=== PATIENT | male | born 1960 | race Caucasian/White ===

== ENCOUNTER 2018-11-09 18:58 | Inpatient (IN) | payer BC ==
[~2018-11-09] VITALS: Ht 175.3 cm; Wt 83.9 kg
[2018-11-09 19:18] VITALS: BP_SYST 158
[2018-11-09] MEDS ORDERED: NACL 0.9% 1,000 ML IV ONE (20:00)
[2018-11-09 20:15] LABS: BASOPHILS % (AUTO) 0.1 % (0.0-2.0); EOSINOPHILS % (AUTO) 0.8 % (0.0-4.0); HEMATOCRIT 38.4 % (36-54); HEMOGLOBIN 12.3 g/dL (14.0-18.0); LYMPHOCYTES # (AUTO) 1.9 K/uL (1.0-5.5); LYMPHOCYTES % (AUTO) 40.9 % (20.5-51.5); MEAN CORPUSCULAR HEMOGLOBIN 27 pg (27-31); MEAN CORPUSCULAR HGB CONC 32 % (32-36); MEAN CORPUSCULAR VOLUME 86 fL (79.0-98.0); MONOCYTES # (AUTO) 0.5 K/uL (0.0-1.0); MONOCYTES % (AUTO) 10.1 % (1.7-9.3); NEUTROPHILS # (AUTO) 2.2 K/uL (1.8-7.7); NEUTROPHILS % (AUTO) 48.1 % (40.0-70.0); PLATELET COUNT (AUTO) 264 K/uL (130-430); RED BLOOD CELL COUNT(AUTO) 4.47 MIL/uL (4.2-6.2); RED CELL DISTRIBUTION WIDTH 15.6 % (9.0-15.0); WHITE BLOOD COUNT (AUTO) 4.6 K/uL (4.8-10.8)
[2018-11-09 20:27] LABS: ANION GAP 6 (5-15); CALCIUM 8.6 mg/dL (8.4-11.0); CHLORIDE 103 mmol/L (98-107); GLUCOSE 106 mg/dL (70-99); POTASSIUM 3.6 mmol/L (3.5-5.1); SODIUM SERUM 137 mmol/L (136-145); UREA NITROGEN, BLOOD 18 mg/dL (8-21)
[2018-11-09 20:28] LABS: GFR AFRICAN AMERICAN 111 mL/min (>90)
[2018-11-09 20:32] LABS: ALANINE AMINOTRANSFERASE 27 U/L (12-78); ALBUMIN 3.5 g/dL (3.4-4.8); ASPARTATE AMINOTRANSFERASE 16 U/L (10-37); TOTAL BILIRUBIN 0.2 mg/dL (0.0-1.0)
[2018-11-09 20:34] LABS: ALCOHOL, BLOOD < 3 mg/dL (<10)
[2018-11-09 20:36] LABS: PROTHROMBIN TIME 9.9 SECS (9.5-12.5)
[2018-11-09 21:25] LABS: BILIRUBIN,URINE NEGATIVE (NEGATIVE); BLOOD, URINE NEGATIVE (NEGATIVE); CLARITY/URINE CLEAR (CLEAR); COLOR,URINE YELLOW (YELLOW); GLUCOSE,URINE NEGATIVE (NEGATIVE); KETONES,URINE NEGATIVE (NEGATIVE); LEUKOCYTE ESTERASE ,URINE NEGATIVE (NEGATIVE); NITRITE, URINE NEGATIVE (NEGATIVE); PH,URINE 6.5 (5.0-8.0); PROTEIN URINE NEGATIVE (NEGATIVE); UROBILINOGEN,URINE 0.2 (0.2-1.0)
[2018-11-09 21:40] LABS: BARBITURATE, URINE NEGATIVE (NEG <=200); BENZODIAZEPINE, URINE NEGATIVE (NEG <=150); CANNABINOID, URINE NEGATIVE (NEG <=50); COCAINE, URINE NEGATIVE (NEG <=150); METHAMPHETAMINES SCREEN,URINE NEGATIVE (NEG <=500); OPIATE, URINE NEGATIVE (NEG <=100); PHENCYCLIDINE SCREEN,URINE NEGATIVE (NEG <=25); UR TRICYCLIC ANTIDEPRESSANTS NEGATIVE (NEG <=300); URINE AMPHETAMINE NEGATIVE (NEG <=500); URINE METHADONE NEGATIVE (NEG <=200); URINE OXYCODONE SCREEN NEGATIVE (NEG <=100); URINE PROPOXYPHENE SCREEN NEGATIVE (NEG <=300)
[2018-11-09] MEDS ORDERED: OMEG-143 PO (22:07)
[2018-11-09] MEDS ORDERED: LOSA1TAB43 PO (22:07)
[2018-11-09] MEDS ORDERED: DIPH25CA83 PO (22:07)
[2018-11-09] MEDS ORDERED: VIT D PO (22:07)
[2018-11-09] MEDS ORDERED: ACETAMINOPHEN 325 MG TABLET PO PRN (22:15)
[2018-11-09] MEDS ORDERED: ASPIRIN 81 MG TAB.CHEW PO SCH (22:30)
[2018-11-09 22:38] VITALS: BP_SYST 133
[2018-11-10] VITALS: BP_SYST 129
[2018-11-10 05:07] LABS: BASOPHILS % (AUTO) 0.1 % (0.0-2.0); EOSINOPHILS # (AUTO) 0.1 K/uL (0.0-0.4); EOSINOPHILS % (AUTO) 1.7 % (0.0-4.0); HEMATOCRIT 37.5 % (36-54); LYMPHOCYTES # (AUTO) 2.1 K/uL (1.0-5.5); LYMPHOCYTES % (AUTO) 52.9 % (20.5-51.5); MEAN CORPUSCULAR HEMOGLOBIN 27 pg (27-31); MEAN CORPUSCULAR HGB CONC 32 % (32-36); MEAN CORPUSCULAR VOLUME 86 fL (79.0-98.0); MONOCYTES # (AUTO) 0.4 K/uL (0.0-1.0); MONOCYTES % (AUTO) 9.5 % (1.7-9.3); NEUTROPHILS # (AUTO) 1.4 K/uL (1.8-7.7); NEUTROPHILS % (AUTO) 35.8 % (40.0-70.0); PLATELET COUNT (AUTO) 260 K/uL (130-430); RED BLOOD CELL COUNT(AUTO) 4.39 MIL/uL (4.2-6.2); RED CELL DISTRIBUTION WIDTH 15.4 % (9.0-15.0)
[2018-11-10 05:22] LABS: CALCIUM 8.2 mg/dL (8.4-11.0); CREATININE 0.68 mg/dL (0.55-1.30); POTASSIUM 3.8 mmol/L (3.5-5.1)
[2018-11-10 05:40] LABS: THYROID STIMULATING HORMONE 2.15 uIu/mL (0.36-3.74)
[2018-11-10 07:54] VITALS: BP_SYST 128
[2018-11-10] MEDS: ASPIRIN 81 MG TABLET(ECOTRIN) PO SCH (09:16)
[2018-11-10] MEDS: FAMOTIDINE 20 MG TABLET PO SCH (09:16)
[2018-11-10 10:53] LABS: CHOLESTEROL 143 mg/dL (<200); HDL CHOLESTEROL 42 mg/dL (>45); LDL CHOLESTEROL 85 mg/dL (<100); TRIGLYCERIDES 141 mg/dL (30-150)
[2018-11-10 12:00] VITALS: BP_SYST 158
[2018-11-10 16:03] VITALS: BP_SYST 124
[2018-11-10 20:00] VITALS: BP_SYST 120
[2018-11-11 00:28] VITALS: BP_SYST 131
[2018-11-11 08:10] VITALS: BP_SYST 142
[2018-11-11] MEDS: ASPIRIN 81 MG TABLET(ECOTRIN) PO SCH (08:10)
[2018-11-11] MEDS: FAMOTIDINE 20 MG TABLET PO SCH (08:10)
[2018-11-11 11:17] VITALS: BP_SYST 143
[2018-11-11 12:36] VITALS: BP_SYST 124
[2018-11-11] MEDS ORDERED: ASA81 PO (12:58)
== END 2018-11-11 13:20 | disposition home or self-care (01) | DRG 312 ==
LOC: SED 18:58 → STU 22:08
PROVIDERS: ADMIT Internal Medicine; ATTEND Internal Medicine
DX: R55 Syncope and collapse (principal); I10 Essential (primary) hypertension; D72.820 Lymphocytosis (symptomatic); D64.9 Anemia, unspecified; W18.39XA Other fall on same level, initial encounter; Y93.89 Activity, other specified; Y92.89 Other specified places as the place of occurrence of the external cause; Y99.8 Other external cause status; Z79.899 Other long term (current) drug therapy; Z87.891 Personal history of nicotine dependence
CPT/HCPCS: 36415; 70450-TC; 71045; 80048; 80053; 80061; 80307; 81003; 83735-TC; 84443-TC; 84484; 85025; 85610-TC; 85730-TC; 93005; 93306; 96360; 99285; G0378; G0482